=== PATIENT | female | born 1960 ===

== ENCOUNTER 2020-10-13 14:56 | Outpatient (CLI) | payer BC, SELFPAY ==
--- NOTE | ~2020-10-13 | US_ITS ---
EXAMINATION: US thyroid DATE: 10/13/2020 15:23 INDICATION: Goiter TECHNIQUE: Multiple ultrasound images of the thyroid were obtained. COMPARISON: None. FINDINGS: The right thyroid lobe measures 4.6 x 1.3 x 1.4 cm. The left thyroid lobe measures 4.6 x 1.1 x 1.8 c m. 3 mm solid iso to hypoechoic nodule with smooth margins and without echogenic foci in the mid lef t thyroid. (TI-RADS 4, moderately suspicious , FNA if >=1.5 cm, annual followup is >1 cm) . There is normal echotexture, echogenicity and vascular flow throughout the thyroid gland. IMPRESSION: 1. 3 mm left thyroid nodule which is not meet criteria for biopsy or follow-up. Otherwise normal thyr oid ultrasound. Reviewed, dictated and finalized at [facility]. A R SPECIALIST IMPRESSION: 1. 3 mm left thyroid nodule which is not meet criteria for biopsy or follow-up. Otherwise normal thyroid ultrasound.
== END 2020-10-13 14:57 | disposition home or self-care (01) ==
PROVIDERS: PCP Nurse Practitioner Family; Visit Provider Nurse Practitioner Family
DX: E04.9 Nontoxic goiter, unspecified (principal)
CPT/HCPCS: 76536